=== PATIENT | male | born 1955 | race African-American/Black ===

== ENCOUNTER 2024-06-25 11:39 | Emergency (ER) | payer OTHER, MEDICAID ==
[~2024-06-25] VITALS: Ht 177.8 cm; Wt 86.2 kg
[2024-06-25] MEDS ORDERED: ACETAMINOPHEN ES 500 MG TABLET ONE (12:22)
[2024-06-25 12:26] LABS: BASOPHILS % (AUTO) 0.3 % (0.0-2.0); EOSINOPHILS % (AUTO) 0.6 % (0.0-6.0); HEMATOCRIT 41 % (39-51); HEMOGLOBIN 13.2 g/dL (13.5-17.5); LYMPHOCYTES # (AUTO) 0.3 K/uL (0.8-4.8); LYMPHOCYTES % (AUTO) 8.2 % (20.0-44.0); MEAN CORPUSCULAR HEMOGLOBIN 27 PG (26.0-33.0); MEAN CORPUSCULAR HGB CONC 32 g/dl (31.0-36.0); MEAN CORPUSCULAR VOLUME 82 fL (80-96); MONOCYTES # (AUTO) 0.1 K/uL (0.1-1.30); MONOCYTES % (AUTO) 2.1 % (2.0-12.0); NEUTROPHILS # (AUTO) 3.3 K/uL (1.8-8.9); NEUTROPHILS % (AUTO) 88.8 % (43.0-81.0); PLATELET COUNT (AUTO) 180 K/uL (150-450); RED BLOOD CELL COUNT(AUTO) 4.96 MIL/uL (4.5-6.0); WHITE BLOOD COUNT (AUTO) 3.7 K/uL (4.3-11.0)
[2024-06-25] MEDS: ACETAMINOPHEN 325 MG TABLET PO ONE (12:28)
[2024-06-25 12:44] LABS: CALCIUM, SERUM 8.7 mg/dL (8.5-10.1); CARBON DIOXIDE 26 mmol/L (21-32); CHLORIDE 104 mmol/L (98-107); CREATININE 1.6 mg/dL (0.6-1.3); GLUCOSE 72 mg/dL (74-106); POTASSIUM 4.9 mmol/L (3.5-5.1); SODIUM SERUM 139 mmol/L (136-145); UREA NITROGEN, BLOOD 27 mg/dL (7-18)
[2024-06-25 12:45] LABS: INR 1.18 (0.91-1.10); PARTIAL THROMBOPLASTIN TIME 24.9 SEC (24.3-34.3); PROTHROMBIN TIME 12.4 SECS (9.2-11.1)
[2024-06-25 12:53] LABS: ALANINE AMINOTRANSFERASE 32 U/L (12-78); ALBUMIN 3.8 g/dL (3.4-5.0); ALKALINE PHOSPHATASE 93 U/L (46-116); ASPARTATE AMINOTRANSFERASE 28 U/L (15-37); BILIRUBIN,DIRECT 0.2 mg/dL (0.0-0.2); BILIRUBIN,TOTAL 0.7 mg/dL (0.2-1.0)
[2024-06-25] MEDS: CEFEPIME 1 GM in IV D5W 50 ML IV ONE (13:00)
[2024-06-25 13:05] LABS: LACTIC ACID 2.2 mmol/L (0.4-2.0)
[2024-06-25 13:35] LABS: APPEARANCE,URINE SLIGHTLY CLOUDY (CLEAR); BILIRUBIN,URINE NEGATIVE (NEGATIVE); BLOOD, URINE TRACE-INTA Ery/uL (NEGATIVE); COLOR,URINE YELLOW (YELLOW); KETONES,URINE NEGATIVE (NEGATIVE); LEUKOCYTE ESTERASE ,URINE TRACE (NEGATIVE); NITRITE, URINE NEGATIVE (NEGATIVE); PROTEIN,URINE TRACE mg/dl (NEGATIVE); UGLUCOSE 2+ mg/dL (NEGATIVE); UROBILINOGEN,URINE 0.2 EU/dL (0.2)
[2024-06-25 13:48] LABS: BACTERIA,URINE Many /HPF (None Seen); SQUAMOUS EPITHELIAL CELL,UR None Seen /HPF (None Seen)
[2024-06-25 13:49] LABS: ADD URINE CULTURE YES; WBC,URINE 21-50 /HPF (0-3)
[2024-06-25] MEDS: VANCOMYCIN 1 GM in IV D5W 250 ML IV ONE (14:00)
[2024-06-25] MEDS: IV NS 0.9% 1,000 ML BAG IV ONE (14:25)
[2024-06-25 14:27] VITALS: BP 109/58; TEMP 99.5
[2024-06-25] MEDS ORDERED: ALBUTEROL FS 2.5 MG/3 ML VIAL.NEB ONE (14:30)
[2024-06-25] MEDS: ALBUTEROL FS 2.5 MG/3 ML VIAL.NEB NEB ONE (14:33)
[2024-06-25 14:34] VITALS: O2SAT 95
[2024-06-25 14:44] VITALS: O2SAT 100
[2024-06-25 14:45] VITALS: O2SAT 100
[2024-06-25 14:54] VITALS: O2SAT 100
== END 2024-06-25 16:52 | disposition short-term general hospital (02) ==
LOC: EDBD 11:41 → ER 11:41
DX: A41.9 Sepsis, unspecified organism (principal); R65.20 Severe sepsis without septic shock; N39.0 Urinary tract infection, site not specified; J40 Bronchitis, not specified as acute or chronic; D72.819 Decreased white blood cell count, unspecified; E11.9 Type 2 diabetes mellitus without complications; E87.20 Acidosis, unspecified; I10 Essential (primary) hypertension; I48.91 Unspecified atrial fibrillation; N28.9 Disorder of kidney and ureter, unspecified; R06.02 Shortness of breath; R79.89 Other specified abnormal findings of blood chemistry; Z95.1 Presence of aortocoronary bypass graft; Z20.822 Contact with and (suspected) exposure to COVID-19
CPT/HCPCS: 99291; 96365; 71045; 96367; 87426; 93005; 87804 ×2; 84145; 85025; 80048; 87077; 87040; 87086; 83605; 80076; 87186; 81001; 36415; 84484; 85730; 83880; 94640; J3370; J7060; J7030; J0692; A4223 ×2